=== PATIENT | male | born 1980 | race African-American/Black ===

== ENCOUNTER 2016-05-20 19:15 | Emergency (ER) | payer OTHER ==
[2016-05-20 20:05] VITALS: BP 154/88; PULSE 102; RESP 18; TEMP 100.5
[2016-05-20] MEDS ORDERED: ACETAMINOPHEN TAB 500 MG TAB PO STA (21:07)
[2016-05-20] MEDS ORDERED: traMADol 50 MG TAB PO STA (21:13)
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
== END 2016-05-20 21:20 | disposition home or self-care (01) ==
LOC: EC 19:15
DX: K08.89 Other specified disorders of teeth and supporting structures (principal); K03.81 Cracked tooth; F17.200 Nicotine dependence, unspecified, uncomplicated
CPT/HCPCS: 99283

== ENCOUNTER 2019-01-24 15:11 | Emergency (ER) | payer OTHER ==
[2019-01-24 15:18] VITALS: BP 140/78; PULSE 80; RESP 16; TEMP 98.7
[2019-01-24] MEDS ORDERED: FLUTICASONE 50MCG/SPRAY NASAL 16GM EA NOSTRIL STA (16:01)
--- NOTE | 2019-01-24 16:02 | ED ---
General Adult HPI - General Chief complaint: ENT Stated complaint: Ear infection Time Seen by Provider: 01/24/19 15:18 Source: patient, RN notes reviewed, old records reviewed Mode of arrival: ambulatory Limitations: no limitations - History of Present Illness Initial comments: 38 year old male patient with no pertinent past medical history presents to ED with chief complaint of sinus congestion radiating to right ear for approximately 2 weeks. Patient denies any other complaints. Denies any cough or congestion. Systemic: Pt denies fatigue, fever/chills, rash. Pt denies weakness, night sweats, weight loss. Neuro: Pt denies headache, visual disturbances, syncope or pre-syncope. HEENT: Pt denies ocular discharge or irritation, otalgia, rhinorrhea, pharyngitis or notable lymphadenopathy. Cardiopulmonary: Pt denies chest pain, SOB, heart palpitations, dyspnea on exertion. Abdominal/GI: Pt denies abdominal pain, n/v/d. : Pt denies dysuria, burning w/ urination, frequency/urgency. Denies new onset urinary or bowel incontinence. MSK: Pt denies myalgia, loss of strength or function in extremities. Neuro: Pt denies new onset weakness, paresthesias. - Related Data Home Medications Medication Instructions Recorded Confirmed Ibuprofen [Motrin] 200 - 400 mg PO Q6HR PRN 05/20/16 05/20/16 Previous Rx's Medication Instructions Recorded Penicillin V Potassium [Pen Vee K] 500 mg PO QID 7 Days tab 05/20/16 traMADol HCL [Ultram] 50 mg PO Q6HR #12 tab 05/20/16 Amoxicillin/Potassium Clav 1 each PO Q12HR 28 Days #14 tab 01/24/19 [Augmentin 875-125 Tablet] Allergies Allergy/AdvReac Type Severity Reaction Status Date / Time No Known Allergies Allergy Verified 01/24/19 15:17 Review of Systems ROS Statement: Those systems with pertinent positive or pertinent negative responses have been documented in the HPI. ROS Other: All systems not noted in ROS Statement are negative. Past Medical History Past Medical History: No Reported History History of Any Multi-Drug Resistant Organisms: None Reported Past Surgical History: No Surgical Hx Reported Additional Past Surgical History / Comment(s): jaw surgery Past Psychological History: No Psychological Hx Reported Smoking Status: Current every day smoker Past Alcohol Use History: Rare Past Drug Use History: None Reported General Exam - General Exam Comments Initial Comments: Constitutional: NAD, AOX3, Pt has pleasant affect. HEENT: NC/AT, trachea midline, neck supple, no lymphadenopathy. Posterior pharynx non erythematous, without exudates. External ears appear normal, without discharge. Mucous membranes moist. Eyes PERRLA, EOM intact. There is no scleral icterus. No pallor noted. Maxillary sinus pressure reproducible upon palpation. Right TM mostly occluded with cerumen, left TM pale saeed bilaterally. Cardiopulmonary: RRR, no murmurs, rubs or gallops, no JVD noted. Lungs CTAB in anterior and posterior degroot. No peripheral edema. Abdominal exam: Abdomen soft and non-distended. Abdomen non-tender to palpation in all 4 quadrants. Bowel sounds active in LLQ. No hepatosplenomegaly. No ecchymosis Neuro: CN II-XII grossly intact. No nuchal rigidity. No raccon eyes, no greene sign, no hemotympanum. No cervical spinal tenderness. MSK: No posterior calf tenderness bilaterally, homans sign negative bilaterally. Posterior tibialis and radial pulse +2 bilaterally. Sensation intact in upper and lower extremities. Full active ROM in upper and lower extremities, 5/5 stregnth. Limitations: no limitations Course Vital Signs 01/24/19 15:15 Temperature 98.7 F Pulse Rate 80 Respiratory 16 Rate Blood Pressure 140/78 O2 Sat by Pulse 99 Oximetry Medical Decision Making - Medical Decision Making 38 year old male patient with no pertinent past medical history presents to ED with chief complaint of sinus congestion radiating to right ear for approximately 2 weeks. Patient vital signs signs are stable, afebrile. Ph ysical exam displayed maxillary sinus pressure icterus. On palpation. Right TM mostly occluded with cerumen. No signs of infection noted. Left TM pale saeed. Right TM gently irrigated, visualized TM does not show signs of infection. Patient will be treated with Augmentin, Flonase for sinusitis. Will follow up with primary care provider will return to ER physician worsens. Case discussed with Dr. Jackson. Disposition Clinical Impression: Sinusitis Disposition: HOME SELF-CARE Condition: Stable Instructions (If sedation given, give patient instructions): Sinusitis (ED) Additional Instructions: Follow-up with primary care provider tomorrow. Take antibiotics and decongestant is recommended. Return to ER if condition worsens. Prescriptions: Amoxicillin/Potassium Clav [Augmentin 875-125 Tablet] 1 each PO Q12HR 28 Days #14 tab Is patient prescribed a controlled substance at d/c from ED?: No Referrals: None,Stated [Primary Care Provider] - 1-2 days [facility] [NON-STAFF] - 1-2 days
[2019-01-24] MEDS ORDERED: AMOXIC-POT CLAV 875MG STARTER 2 EACH TABLET PO STA (16:51)
[2019-01-24] MEDS ORDERED: AMOXIC-POT CLAV 875-125MG 1 EACH TAB PO STA (16:51)
== END 2019-01-24 16:55 | disposition home or self-care (01) ==
LOC: EC 15:11
DX: J32.9 Chronic sinusitis, unspecified (principal); H61.21 Impacted cerumen, right ear; F17.200 Nicotine dependence, unspecified, uncomplicated
CPT/HCPCS: 69209; 99283

== ENCOUNTER 2021-08-21 22:57 | Emergency (ER) | payer OTHER ==
[2021-08-21 23:37] VITALS: TEMP 98.6
[2021-08-22] MEDS ORDERED: IBUPROFEN 400 MG TAB PO STA (03:24)
[2021-08-22] MEDS ORDERED: DIPH,PERTUS(ACELL)TETVAC-LF 0.5 ML VIAL IM ONE (03:24)
[2021-08-22] MEDS ORDERED: LIDOCAINE 1% INJ 10MG/ML (10 ML MDV) SQ STA (04:19)
[2021-08-22] MEDS ORDERED: LIDOCAINE 1% PF 10 MG/ML (5 ML AMP) SQ ONE (04:33)
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
[2021-08-22 05:13] VITALS: BP 137/86; PULSE 66; RESP 16
== END 2021-08-22 05:08 | disposition home or self-care (01) ==
LOC: EC 22:57
DX: S01.81XA Laceration without foreign body of other part of head, initial encounter (principal); F17.200 Nicotine dependence, unspecified, uncomplicated; W22.8XXA Striking against or struck by other objects, initial encounter
CPT/HCPCS: 99283; 12013; J2001